=== PATIENT | female | born 1975 | race Caucasian/White ===

== ENCOUNTER 2021-04-16 19:22 | Emergency (ER) | payer SELFPAY ==
[~2021-04-16] VITALS: Ht 162 cm; Wt 68.8 kg
[2021-04-16 19:39] VITALS: BP 141/84
[2021-04-16] MEDS ORDERED: AUGMENTIN 875 MG TAB (AMOXICILLIN/CLAVULANATE) PO STA (19:57)
[2021-04-16] MEDS ORDERED: KETOROLAC 30 MG/ML VIAL IM ONE (20:00)
--- NOTE | 2021-04-16 20:06 | ED EENT ---
History of Present Illness General Chief Complaint: Dental Problems/Pain Stated Complaint: TOOTH PAIN/MOUTH SWELLING,NAUSEA Nursing Triage Note: Patient reports pain and swelling on R side of mouth x several months but the pain has been worse since last night. Patient went to the clinic and got a prescription for antibiotics per the dentist and states she has an appt with the dentist on 05/06/21. Patient reports taking tylenol, ibuprofen, and tramadol w/ no relief. History of Present Illness Date Seen by Provider: Apr 16, 2021 Time Seen by Provider: 19:37 Initial Comments 46 yr F is here with c/o dental pain in majority of her teeth which has been going on for some time. Pt has a dental appointment on May 06. She has finished a course of Augmentin a few days ago which the PCP had prescribed for her. No change in pain level. She has been taking Ibuprofen and Tylenol at home for pain. Denies fever, headache, facial pain, nausea, vomiting. Allergies and Home Medications Allergies Coded Allergies: No Known Drug Allergies (Unverified , 04/16/21) Patient Home Medication List Home Medication List Reviewed: Yes Clindamycin HCl (Clindamycin HCl) 300 Mg Capsule, 300 MG PO Q6H Prescribed by: PETRA CARREON MD on 04/16/212018 Review of Systems Review of Systems Constitutional: no symptoms reported Eyes: No Symptoms Reported Ears: No Symptoms Reported Nose: no symptoms reported Mouth: loose teeth, pain Throat: no symptoms reported Respiratory: no symptoms reported Cardiovascular: no symptoms reported Gastrointestinal: no symptoms reported : No Musculoskeletal: no symptoms reported Past Mlojjku-[id number]-[id number] Hx Patient Social History Tobacco Use?: Yes Tobacco type used: Cigarettes Smoking Status: Current Everyday Smoker Use of E-Cig and/or Vaping dev: No Substance use?: No Alcohol Use?: No Pt feels they are or have been: No Past Medical History Last Menstrual Period: Apr 11, 2021 Physical Exam Vital Signs Vital Signs - First Documented 04/16/21 19:39 Temp 36.6 Pulse 113 Resp 16 B/P (MAP) 141/84 (103) Pulse Ox 97 O2 Delivery Room Air Height, Weight, BMI Height: '" Weight: lbs. oz. kg; 26.00 BMI Method: General Appearance: WD/WN, no apparent distress Nose: normal inspection Mouth/Throat: dental tenderness, other (extensive dental caries and decay in all her teeth. No swelling around mouth or tongue. No facial swelling. ) Neck: non-tender, full range of motion, supple Neurologic/Psychiatric: alert, oriented x 3 Skin: normal color Progress/Results/Core Measures Results/Orders My Orders Orders - PETRA CARREON MD Ketorolac Injection (Toradol Injection) (04/16/21 20:00) Amoxicillin/Clavulanate Tablet (Augmenti (04/16/21 19:57) Clindamycin Capsule (Cleocin Capsule) (04/16/21 20:10) Medications Given in ED Current Medications Medications Dose Ordered Sig/Nancie Route Start Time Stop Time Status Last Admin Dose Admin Ketorolac Tromethamine 30 mg ONCE ONCE IM 04/16/21 20:00 04/16/21 20:01 DC 04/16/21 20:08 30 MG Vital Signs/I&O 04/16/21 19:39 Temp 36.6 Pulse 113 Resp 16 B/P (MAP) 141/84 (103) Pulse Ox 97 O2 Delivery Room Air Blood Pressure Mean: 103 Progress Progress Note : Progress Note 1. DENTAL PAIN/ MULTIPLE SEVERE CAVITIES: - Pt has just completed a course of Augmentin a few days ago prescribed by the PC. Clinda prescription Q6H for 7 days, with first tab in ER. Advised pt that her dental caries are too expensive and involve ALL her teeth so ultimate pain alleviation can only be achieved with dental work. Pt understands this. She has a dental appointment on May 06. - Toradol 30mg im STAT Departure Impression Primary Impression: Dental caries extending into dentine Disposition: HOME, SELF-CARE Condition: Stable/Unchanged Departure-Patient Inst. Referrals: BENI SORTO APRN (PCP/Family) Primary Care Physician Patient Instructions: Dental Pain (DC), Dental Pain ED, Tooth Decay, Adult (DC) Add. Discharge Instructions: Clindamycin 300mg Q6H for 7 days - Continue Ibuprofen and Tylenol for pain - Keep Dental appointment on May 06 All discharge instructions reviewed with patient and/or family. Voiced understanding. Scripts Clindamycin HCl (Clindamycin HCl) 300 Mg Capsule 300 MG PO Q6H for 7 Days, #14 CAP Prov: PETRA CARREON MD 04/16/21 PETRA CARREON MD Apr 16, 2021 20:06
[2021-04-16] MEDS ORDERED: CLINDAMYCIN 150 MG (CLEOCIN) CAP PO STA (20:10)
[2021-04-16] MEDS ORDERED: CLIN-144 PO (20:19)
== END 2021-04-16 20:25 | disposition home or self-care (01) ==
LOC: ER FS 19:23
DX: K02.9 Dental caries, unspecified (principal); F17.210 Nicotine dependence, cigarettes, uncomplicated
CPT/HCPCS: 99283